=== PATIENT | female | born 1985 | race African-American/Black ===

== ENCOUNTER 2017-01-08 11:21 | Emergency (ER) | payer MEDICARE, OTHER ==
[~2017-01-08] VITALS: Ht 165.1 cm; Wt 172.0 kg
[2017-01-08] MEDS ORDERED: LIDOCAINE HCL 1% 20ML VIAL (Pyxis) INJ MC ONE (12:15)
[2017-01-08] MEDS ORDERED: TETANUS, DIPHTHERIA, PERTUSSIS VAC/PF 0.5ML (>7YR OLD) IM ONE (12:15)
[2017-01-08] MEDS ORDERED: BACITRACIN ZINC OINT UDPKT TOP ONE (12:15)
[2017-01-08] MEDS ORDERED: IBUPROFEN 600MG TABLET PO ONE (12:15)
[2017-01-08] MEDS ORDERED: IBUPROFEN 600MG TABLET ONE (12:30)
[2017-01-08 13:48] VITALS: BP 152/90
== END 2017-01-08 14:04 | disposition home or self-care (01) ==
LOC: ER 11:36
DX: L02.211 Cutaneous abscess of abdominal wall (principal); Z98.890 Other specified postprocedural states
CPT/HCPCS: 10060; 90471; 90715; 99283; J3490

== ENCOUNTER 2017-01-11 08:19 | Emergency (ER) | payer MEDICARE, OTHER ==
[~2017-01-11] VITALS: Ht 165.1 cm; Wt 173.0 kg
[2017-01-11 11:00] VITALS: BP 120/81
== END 2017-01-11 11:12 | disposition home or self-care (01) ==
LOC: ER 08:19
DX: Z48.00 Encounter for change or removal of nonsurgical wound dressing (principal)
CPT/HCPCS: 99283

== ENCOUNTER 2017-02-26 13:03 | Emergency (ER) | payer MEDICARE, OTHER ==
[~2017-02-26] VITALS: Ht 165.1 cm; Wt 137.0 kg
[2017-02-26 13:05] VITALS: BP 145/83
[2017-02-26] MEDS ORDERED: IBUPROFEN 800MG TABLET PO ONE (15:30)
== END 2017-02-26 16:08 | disposition home or self-care (01) ==
LOC: ER 13:40
DX: L02.411 Cutaneous abscess of right axilla (principal); L03.111 Cellulitis of right axilla
CPT/HCPCS: 99282